=== PATIENT | female | born 1965 | race Caucasian/White ===

== ENCOUNTER 2023-02-13 10:18 | Outpatient (CLI) | payer BC | END 2023-02-13 10:40 | disposition home or self-care (01) | LOC: RAD 10:18 | DX: M19.90 Unspecified osteoarthritis, unspecified site (principal) ==

== ENCOUNTER → 2023-02-15 | Outpatient (CLI) | payer BC | END | disposition home or self-care (01) | LOC: MRI 06:46 | PROVIDERS: ATTEND Radiology Diagnostic Radiology | DX: M25.561 Pain in right knee (principal) | CPT/HCPCS: 73721 ==

== ENCOUNTER 2024-02-22 07:57 | Outpatient (CLI) | payer BC | END 2024-02-22 08:00 | disposition home or self-care (01) | LOC: MRI 07:57 | PROVIDERS: ATTEND Orthopaedic Surgery Sports Medicine | DX: M17.0 Bilateral primary osteoarthritis of knee (principal) | CPT/HCPCS: 73721 ==

== ENCOUNTER 2024-09-05 07:00 | Outpatient (CLI) | payer BC | END 2024-09-05 07:20 | disposition home or self-care (01) | LOC: TOM 07:00 | DX: R10.30 Lower abdominal pain, unspecified (principal) ==